=== PATIENT | male | born 1980 | race Two or more races ===

== ENCOUNTER 2025-05-15 15:26 | Emergency (ER) | payer OTHER, SELFPAY ==
[2025-05-15 15:30] VITALS: BP 129/84
--- NOTE | 2025-05-15 16:31 | ED.GENMED ---
History of Present Illness
General
Chief Complaint: Skin Problem
Time Seen by Provider: 05/15/25 15:55
History of Present Illness
History of Present Illness:
45 yo male presents for evaluation of R index finger redness/pain with red streaking up the hand x 3 days. No fevers. No known trauma. Denies recent manicures
Past History
Past History
ED Past Medical History: None
ED Past Surgical History: None
Social History
Tobacco: Smoker
Drug: None
Review of Systems
Review of Systems
Allergies reviewed?: Yes
All Other Systems: ROS reviewed and negative except as documented in HPI and ROS
Phy Exam
Physical Exam
Physical Exam:
GEN: Well appearing, NAD, WDWN
HEENT: Oral mucosa moist, no scleral icterus
Cardiac: Regular rate
Lung: No respiratory distress, no tachypnea
MSK: Mild erythema with swelling to the right index finger including the finger pad with lymphangitis to the mid hand, no open wounds, no palpable paronychia
Skin: Good color, no pallor or jaundice, no rashes
Neuro: AO x3, moves all extremities freely
Psych: Calm, cooperative
Course
Orders/Labs/Results
Orders:
Orders
05/15/25 16:29
CeFAZolin 2 GRAM [Ancef] 2 grams in 10 ml IV NOW
Vital Signs
Initial and Last Documented VS:
Initial Vital Signs
Temp Pulse Resp BP Pulse Ox
98.4 F 54 20 129/84 100
05/15/25 15:30 05/15/25 15:30 05/15/25 15:30 05/15/25 15:30 05/15/25 15:30
Last Documented Vital Signs
Temp Pulse Resp BP Pulse Ox
98.4 F 54 20 129/84 100
05/15/25 15:30 05/15/25 15:30 05/15/25 15:30 05/15/25 15:30 05/15/25 16:32
MDM/Problems Addressed
MDM/Problems Addressed:
I did attempt to incise the lateral nail fold after digital block anesthesia however no purulence was expressed. Will start the patient on antibiotics, communicated the findings with hand surgery who will help to make arrangements to see the
patient later in the week
*Pulse Oximetry
SaO2: 100
Oxygen Mode of Delivery: Room air
Patient hypoxic: no
*Critical Care Note
Total Time (30-74mins, 75-104mins- exclusive of procedures): Not Applicable
ED Attending Note
-
Portions of this chart may have been created with voice recognition software.� Occasional wrong word or��sound alike� substitutions may have occurred due to the inherent limitations of voice recognition software.
Discharge Plan
Departure
Patient Disposition: Home (Routine Discharge)
Date of Disposition: 05/15/25
Time of Disposition: 16:31
Patient with high blood pressure during this ER visit?: No
Discharge Problem:
Felon of finger
Instructions: Common finger infections - ED (DC)
Prescriptions:
New
cephalexin 500 mg capsule
500 mg PO Q6H 7 Days Qty: 28 0RF
No Action
sucralfate 1 GRAM tablet
1 g PO ACHS Qty: 40 0RF
Rx Instructions:
dissolve in 10ml of water and drink
Referrals:
Rohit Aguirre CRNP [Family Provider, Family Practice]
Brant Aguayo MD [Active, Orthopedics]
Activity Restrictions/Additional Instructions:
Follow up with either Dr Gillis or Dr Aguayo at [facility] this week
Return to the ER if you develop a fever or chills
Warm salt water soaks 3-5 times per day if possible
Interventions
Interventions:
*Risk Screen - Suicide Last Done: 05/15/25 15:30
*General Assessment Last Done: 05/15/25 15:30
*Neglect/Abuse Screening Last Done: 05/15/25 15:30
*Nursing Disposition Last Done: 05/15/25 16:49
ED-Skin Assessment Last Done: 05/15/25 16:04
Discharge Date and Time
Discharge Date/Time: 05/15/25 16:49
Print Language: ARABIC
[2025-05-15] MEDS: ANCEF 10 IV (16:39)
== END 2025-05-15 16:49 | disposition home or self-care (01) ==
LOC: EMR 15:26
PROVIDERS: EMERGENCY PHYSICIAN Emergency Medicine; FAMILY PHYSICIAN Nurse Practitioner Family
DX: L03.011 Cellulitis of right finger (principal); F17.200 Nicotine dependence, unspecified, uncomplicated
CPT/HCPCS: 26010; 96374; 99284